=== PATIENT | male | born 1985 | race Two or more races ===

== ENCOUNTER 2019-09-10 13:19 | Emergency (ER) | payer SELFPAY ==
[2019-09-10 14:27] LABS: ABSOLUTE BASOPHILS # (AUTO) 0.1 10^3/uL (0.0-0.2); ABSOLUTE EOSINOPHILS # (AUTO) 0.1 10^3/uL (0.0-0.6); ABSOLUTE LYMPHOCYTES (AUTO) 2.4 10^3/uL (0.5-4.7); ABSOLUTE MONOCYTES (AUTO) 0.5 10^3/uL (0.1-1.4); ABSOLUTE NEUT (AUTO) 3.9 10^3/uL (1.7-8.2); BASOPHILS % (AUTO) 1.5 % (0-2); EOSINOPHILS % (AUTO) 1.9 % (0-6); HEMATOCRIT 43.2 % (37.9-51.0); HEMOGLOBIN 14.9 g/dL (13.5-17.0); LYMPHOCYTES % (AUTO) 34.3 % (13-45); MEAN CORPUSCULAR HEMOGLOBIN 29.2 pg (27.0-33.4); MEAN CORPUSCULAR HGB CONC 34.4 g/dL (32.0-36.0); MEAN CORPUSCULAR VOLUME 85 fl (80-97); MONOCYTES % (AUTO) 7.7 % (3-13); PLATELET COUNT 329 10^3/uL (150-450); SEGMENTED NEUTROPHILS % (AUTO) 54.6 % (42-78); TOTAL CELLS COUNTED % (AUTO) 100 %; WHITE BLOOD COUNT 7.1 10^3/uL (4.0-10.5)
[2019-09-10 14:33] LABS: ALBUMIN 4.6 g/dL (3.5-5.0); ALKALINE PHOSPHATASE 109 U/L (38-126); ANION GAP 8 (5-19); ASPARTATE AMINO TRANSFERASE 21 U/L (17-59); BILIRUBIN,TOTAL 0.7 mg/dL (0.2-1.3); BLOOD UREA NITROGEN 15 mg/dL (7-20); CALCIUM 9.6 mg/dL (8.4-10.2); CARBON DIOXIDE 26 mmol/L (22-30); CHLORIDE 104 mmol/L (98-107); CREATINE KINASE 110 U/L (55-170); GLUCOSE 109 mg/dL (75-110); POTASSIUM 4.1 mmol/L (3.6-5.0); TOTAL PROTEIN 7.9 g/dL (6.3-8.2)
[2019-09-10 14:45] LABS: CREATINE KINASE MB 0.61 ng/mL (<4.55)
[2019-09-10 14:53] LABS: TROPONIN I < 0.012 ng/mL
--- NOTE | 2019-09-10 15:24 | RADIOLOGY REPORT (SQ) ---
EXAM DESCRIPTION: CHEST SINGLE VIEW IMAGES COMPLETED DATE/TIME: 09/10/2019 3:08 pm REASON FOR STUDY: Chest Pain COMPARISON: None. EXAM PARAMETERS: NUMBER OF VIEWS: One view. TECHNIQUE: Single frontal radiographic view of the chest acquired. RADIATION DOSE: NA LIMITATIONS: None. FINDINGS: LUNGS AND PLEURA: No opacities, masses or pneumothorax. No pleural effusion. MEDIASTINUM AND HILAR STRUCTURES: No masses. Contour normal. HEART AND VASCULAR STRUCTURES: Heart normal in size. Normal vasculature. BONES: No acute findings. HARDWARE: None in the chest. OTHER: No other significant finding. IMPRESSION: NO ACUTE RADIOGRAPHIC FINDING IN THE CHEST. TECHNICAL DOCUMENTATION: JOB ID: [id number] 2010 [employer]- All Rights Reserved Reading location - IP/workstation name: [email or web address]
[2019-09-10 16:24] VITALS: BP 140/93
--- NOTE | 2019-09-10 16:24 | ER Document Report ---
ED General - General Chief Complaint: Chest Pain Stated Complaint: CHEST PAIN Time Seen by Provider: 09/10/19 15:11 - HPI Notes: Chief complaint: Reflux symptoms, cough and intermittent shortness of breath Generally healthy 34-year-old male with 2 to 3-week history of intermittent symptoms as noted above. Non-smoker. No fever. No known exposure to Covid-19. No travel outside area. Patient was previously seen in urgent care center and told that he might have allergies and was given antihistamine which was not helpful. He takes no other medications and has no known allergies. - Related Data Allergies/Adverse Reactions: No Known Allergies Allergy (Unverified 09/10/19 14:05) Past Medical History - General Information source: Patient - Social History Smoking Status: Unknown if Ever Smoked Family History: Reviewed & Not Pertinent Patient has suicidal ideation: No Patient has homicidal ideation: No Review of Systems - Review of Systems Notes: Constitutional: Negative for fever. HENT: Negative for sore throat. Eyes: Negative for visual changes. Cardiovascular: Negative for chest pain. Respiratory: As per HPI . Gastrointestinal: As per HPI. Genitourinary: Negative for dysuria. Musculoskeletal: Negative for back pain. Skin: Negative for rash. Neurological: Negative for headaches, weakness or numbness. 10 point ROS negative except as marked above and in HPI. Physical Exam - Vital signs Vitals: Temp Pulse Resp BP Pulse Ox 98.6 F 92 16 164/77 H 99 09/10/19 14:03 09/10/19 14:03 09/10/19 14:03 09/10/19 14:03 09/10/19 14:03 - Notes Notes: Remote Exam Using Telemedicine System because of potential Covid-19 GENERAL: Well-developed well-nourished appearing in no acute distress. SKIN: no rashes. HEAD: Normocephalic atraumatic. EYES: PERRL. EOMI. Conjunctivae and sclerae clear. NOSE: CLEAR. MOUTH: Moist mucosa. Good dentition. No stridor or edema. No drooling. NECK: Full ROM. No visible masses or thyromegaly. No JVD. BACK: Symmetrical. CHEST: Respirations unlabored. Expands symmetrical. ABDOMEN: Non-distended. GENITALIA: Deferred. EXTREMITIES: No edema. NEUROLOGICAL: GCS 15. Alert and oriented x3. Normal gait. Fluent speech. Cranial nerves II through XII intact. Motor and cerebellar normal. PSYCHIATRIC: Appropriate affect. Course - Re-evaluation Re-evalutation: 09/10/19 16:22 Labs and exam are unremarkable as is a chest x-ray. Based on the history I think his risk of Covid-19 infection is very low. His current symptoms are likely related to acid reflux and I have reassured him and told him that we can treat this on an outpatient basis and have him follow-up with primary care physician. - Vital Signs Vital signs: Temp Pulse Resp BP Pulse Ox 98.6 F 92 16 164/77 H 99 09/10/19 14:03 09/10/19 14:03 09/10/19 14:03 09/10/19 14:03 09/10/19 14:03 - Laboratory Result Diagrams: 09/10/19 13:38 09/10/19 13:38 - Diagnostic Test Radiology reviewed: Reports reviewed Radiology results interpreted by me: 09/10/19 16:22 Normal PA lateral chest x-ray per radiologist Discharge - Discharge Clinical Impression: Gastroesophageal reflux disease Qualifiers: Esophagitis presence: esophagitis presence not specified Qualified Code(s): K21.9 - Gastro-esophageal reflux disease without esophagitis Condition: Stable Disposition: HOME, SELF-CARE Instructions: Reflux Disease (GERD) ([facility]) Additional Instructions: Follow-up with your primary care physician. Take prescribed medication as directed. Return here as needed for new or worsening symptoms. Prescriptions: Pantoprazole Sodium [Protonix [address] Tablet] 40 mg PO QAM 30 Days #30 tablet. Referrals: [facility] [Provider Group] - Follow up as needed
--- NOTE | 2019-09-10 22:30 | EKG REPORT ---
SEVERITY:- NORMAL ECG - SINUS RHYTHM : Confirmed by: Renuka Delarosa MD 10-Sep-2019 22:29:46
== END 2019-09-10 16:34 | disposition home or self-care (01) ==
LOC: ER 13:19
DX: K21.9 Gastro-esophageal reflux disease without esophagitis (principal); R05 Cough; R06.02 Shortness of breath
CPT/HCPCS: 36415; 71045; 80053; 82550; 82553; 84484; 85025; 93005; 93010; 99285

== ENCOUNTER 2019-09-13 12:22 | Emergency (ER) | payer SELFPAY ==
[2019-09-13 12:27] VITALS: BP 150/85
[2019-09-13] MEDS ORDERED: METOCLOPRAMIDE HCL ORAL SOLN 10 MG/10 ML UDCUP PO ONE (12:30)
[2019-09-13] MEDS ORDERED: LIDOCAINE 2% VISCOUS SOLN 15 ML UDCUP PO ONE (12:30)
[2019-09-13] MEDS ORDERED: MAG HYDROX/AL HYDROX/SIMETH SUSP 30 ML UDCUP PO ONE (12:30)
--- NOTE | 2019-09-13 12:31 | ER Document Report ---
HPI - HPI Time Seen by Provider: 09/13/19 12:27 Notes: 34-year-old male patient presented emergency department chief complaint of sore throat and GI upset. Patient reports he was seen here a few days ago for gastroesophageal reflux and sent home on Protonix. He reports that after taking the Protonix he has nausea and has been unable to eat due to his severe nausea. Patient denies any chest pain, fevers or any other symptoms. - REPRODUCTIVE Reproductive: DENIES: : Past Medical History - General Information source: Patient - Social History Smoking Status: Never Smoker Family History: Reviewed & Not Pertinent - Medical History Medical History: Negative Surgical Hx: Negative Vertical Provider Document - CONSTITUTIONAL Notes: PHYSICAL EXAMINATION: GENERAL: Well-appearing, well-nourished and in no acute distress. HEAD: Atraumatic, normocephalic. EYES: Pupils equal round extraocular movements intact, conjunctiva are normal. ENT: Nares patent, oropharynx non-erythematous, no exudates. NECK: Normal range of motion LUNGS: No respiratory distress Musculoskeletal: Normal range of motion NEUROLOGICAL: Normal speech, normal gait. PSYCH: Normal mood, normal affect. SKIN: Warm, Dry, normal turgor, no rashes or lesions noted. Course - Re-evaluation Re-evalutation: Patient appears well, nontoxic, vital signs within normal limits. Patient was given a GI cocktail which she reports relieved his symptoms. Patient will be discharged home on Pepcid and Carafate. He will follow-up with his primary care. - Vital Signs Vital signs: Temp Pulse Resp BP Pulse Ox 98.7 F 77 18 150/85 H 95 09/13/19 12:26 09/13/19 12:26 09/13/19 12:26 09/13/19 12:26 09/13/19 12:26 Discharge - Discharge Clinical Impression: GERD (gastroesophageal reflux disease) Qualifiers: Esophagitis presence: with esophagitis Qualified Code(s): K21.0 - Gastro- esophageal reflux disease with esophagitis Condition: Stable Disposition: HOME, SELF-CARE Additional Instructions: Your symptoms appear to be most consistent with stomach or upper intestinal irritation. Please take the Carafate as directed. Please begin taking famotidine 20 mg in the morning and 20 mg at night. This medicine can be purchased directly [id number], or you can use the prescription provided. You may also take medicine such as Pepto-Bismol or Tums to assist with your pain. Please return to emergency department immediately if you have worsening of your pain, shortness of breath, vomiting, become unable to exert yourself due to pain or difficulty breathing, you pass out, or have any pain that radiates into your arms, jaw, or back. Please also return if you have any additional s ymptoms that are concerning to you. The most important thing is lifestyle changes. You need to avoid smoking, sodas, tea, coffee, alcohol, spicy foods, and acidic foods such as citrus fruits, tomato based products, berries, and most fruit juices. Prescriptions: Sucralfate [Carafate 1 gm Tablet] 1 gm PO ACHS #60 tablet Famotidine [Pepcid 20 mg Tablet] 20 mg PO BID #20 tablet Ondansetron [Zofran Odt 4 mg Tablet] 1 - 2 tab PO Q4H PRN #15 tab.rapdis PRN Reason: For Nausea/Vomiting
== END 2019-09-13 13:31 | disposition home or self-care (01) ==
LOC: ER 12:22
DX: K21.0 Gastro-esophageal reflux disease with esophagitis (principal)
CPT/HCPCS: 99283; J3490